=== PATIENT | female | born 1960 | race Caucasian/White ===

== ENCOUNTER 2021-01-24 14:12 | Inpatient (IN) | payer OTHER ==
[~2021-01-24] VITALS: Ht 160 cm; Wt 61.5 kg
[2021-01-24 15:18] LABS: BASOPHILS % (AUTO) 0 % (0-1); EOSINOPHILS % (AUTO) 1 % (1-7); LYMPHOCYTES % (AUTO) 11 % (22-44); MEAN CORPUSCULAR HEMOGLOBIN 34.1 pg (27.0-34.8); MEAN CORPUSCULAR HGB CONC 33.8 g/dL (32.4-35.8); MEAN PLATELET VOLUME 8.6 fL (7.4-10.4); MONOCYTES % (AUTO) 3 % (2-9); NEUTROPHILS % (AUTO) 85 % (42-75); PLATELET COUNT 303 x10^3/uL (130-400); RED BLOOD COUNT 3.89 x10^6/uL (3.82-5.3); RED CELL DISTRIBUTION WIDTH 13.5 % (9.6-15.2)
[2021-01-24 15:32] LABS: ALKALINE PHOSPHATASE 102 U/L (45-117); BILIRUBIN,TOTAL 0.3 mg/dL (0.2-1.0); TOTAL PROTEIN 8.3 g/dL (6.4-8.2); TROPONIN I < 0.015 ng/mL (0.000-0.045)
[2021-01-24 17:16] LABS: ALANINE AMINOTRANSFERASE 32 U/L (12-78); ALBUMIN 3.2 g/dL (3.4-5.0); ANION GAP 6 mmol/L (5-15); CALCIUM 8.8 mg/dL (8.5-10.1); CHLORIDE 100 mmol/L (98-107); CREATININE 0.68 mg/dL (0.55-1.02)
[2021-01-24] MEDS ORDERED: ACETAMINOPHEN 500 MG TABLET ONE (20:14)
[2021-01-24] MEDS ORDERED: SODIUM CHLORIDE 0.9% 1,000ML IVBOLUS ONE (20:30)
[2021-01-24] MEDS ORDERED: ACETAMINOPHEN 500 MG TABLET PO ONE (20:30)
[2021-01-24] MEDS ORDERED: SODIUM CHLORIDE FLUSH 10ML SYR IVF ONE (20:30)
[2021-01-24] MEDS ORDERED: ONDANSETRON 2MG/ML, 2ML IVPush ONE ×2 (20:30→21:30)
[2021-01-24] MEDS ORDERED: ONDANSETRON 2MG/ML, 2ML ONE ×2 (20:31→21:26)
--- NOTE | 2021-01-24 21:50 | NUR ---
pt having headache, and temperature has not gone down at all. pt tested on room air and is still 88 percent. erp was updated, pt given some motrin and to be admitted to floor
[2021-01-24] MEDS ORDERED: IBUPROFEN 800 MG TABLET ONE (21:57)
[2021-01-24] MEDS ORDERED: IBUPROFEN 800 MG TABLET PO ONE (22:00)
[2021-01-24] MEDS ORDERED: ATOR40TA PO (22:02)
[2021-01-24] MEDS ORDERED: MULT-508 PO (22:03)
[2021-01-24] MEDS ORDERED: PRAM3TAB PO ×2 (22:03→22:04)
[2021-01-24] MEDS ORDERED: DIPHENHYDRAMINE 25 MG CAPSULE ONE (23:03)
[2021-01-24] MEDS ORDERED: DIPHENHYDRAMINE 25 MG CAPSULE PO ONE (23:30)
[2021-01-25] MEDS ORDERED: ONDANSETRON 2MG/ML, 2ML IVPush PRN
--- NOTE | 2021-01-25 | NUR ---
PT TO CT AT THIS TIME
[2021-01-25] MEDS ORDERED: OMNIPAQUE 350 MG/ML, 75ML BOTTLE ONE (00:17)
[2021-01-25] MEDS ORDERED: DEXAMETHASONE 4 MG/ML, 1ML ONE ×2 (00:46→08:09)
[2021-01-25] MEDS: DEXAMETHASONE 4 MG/ML, 1ML IVPush SCH ×2 (00:48→08:50)
--- NOTE | 2021-01-25 01:43 | NUR ---
CALLED DR. TAYLOR TO UPDATE ON CT RESULTS. MESSAGE LEFT
--- NOTE | 2021-01-25 02:35 | NUR ---
RECEIVED REPORT FROM ERICKSON MAC. TRANSFER OF CARE.
[2021-01-25] MEDS ORDERED: ENOXAPARIN 40 MG/0.4 ML ONE (04:07)
--- NOTE | 2021-01-25 04:16 | NUR ---
Patient is resting comfortably in bed. Bed in lowest, rails engaged, call light on lap. Vital Signs within normal limits. WCTM. nadn. A&Ox4, breathing even and unlabored on 2l nc. no additional questions or needs at this time.
[2021-01-25] MEDS: ENOXAPARIN 30 MG/0.3 ML SQ SCH ×2 (04:43→15:19)
--- NOTE | 2021-01-25 04:51 | NUR ---
py urinated one unmeasured urine
--- NOTE | 2021-01-25 05:00 | NUR ---
late entry due to pt care. pt transferred to hospital bed and given blankets and pillow. pt tolerated tranbsfer well. nadn. pt A&OX4. breathing even and unlabored on 2l nc. attached to all monitors, vss. bed in low, rails engaged. call light on lap. no additional needs or questions at this time. wctm
[2021-01-25 05:20] LABS: BASOPHILS % (AUTO) 0 % (0-1); EOSINOPHILS % (AUTO) 0 % (1-7); LYMPHOCYTES % (AUTO) 7 % (22-44); MEAN CORPUSCULAR HEMOGLOBIN 34.6 pg (27.0-34.8); MEAN CORPUSCULAR HGB CONC 34.3 g/dL (32.4-35.8); MEAN PLATELET VOLUME 8.4 fL (7.4-10.4); MONOCYTES % (AUTO) 2 % (2-9); NEUTROPHILS % (AUTO) 90 % (42-75); PLATELET COUNT 278 x10^3/uL (130-400); RED BLOOD COUNT 3.61 x10^6/uL (3.82-5.3); RED CELL DISTRIBUTION WIDTH 13.9 % (9.6-15.2)
[2021-01-25 05:30] LABS: ANION GAP 4 mmol/L (5-15); CALCIUM 8.7 mg/dL (8.5-10.1); CHLORIDE 106 mmol/L (98-107); CREATININE 0.57 mg/dL (0.55-1.02)
[2021-01-25] MEDS ORDERED: PHARMACY INSTRUCTION MC PRN (08:00)
[2021-01-25] MEDS ORDERED: THIAMINE 100MG TABLET ONE (08:09)
[2021-01-25] MEDS ORDERED: CHOLECALCIFEROL 1,000 UNIT TABLET ONE (08:10)
[2021-01-25] MEDS ORDERED: ASCORBIC ACID 500 MG TABLET ONE (08:10)
[2021-01-25] MEDS ORDERED: ZINC SULFATE 220 MG CAPSULE ONE (08:10)
[2021-01-25] MEDS ORDERED: REMDESIVIR 200 MG in SODIUM CHLORIDE 0.9% 250 ML IVPB ONE (08:30)
[2021-01-25] MEDS: ZINC SULFATE 220 MG CAPSULE PO SCH (08:49)
[2021-01-25] MEDS: ASCORBIC ACID 500 MG TABLET PO SCH ×2 (08:50→18:58)
[2021-01-25] MEDS ORDERED: CHOLECALCIFEROL 1,000 UNIT TABLET PO SCH (09:00)
[2021-01-25] MEDS ORDERED: THIAMINE 100MG TABLET PO SCH (09:00)
[2021-01-25] MEDS ORDERED: ACETAMINOPHEN 325 MG TABLET ONE (09:02)
[2021-01-25] MEDS: ACETAMINOPHEN 325 MG TABLET PO PRN (09:05)
[2021-01-25] MEDS: CEFTRIAXONE 1,000 MG in DEXTROSE 5% 50 ML IVPB SCH (11:20)
[2021-01-25] MEDS ORDERED: FUROSEMIDE 20 MG/2 ML ONE (11:27)
[2021-01-25] MEDS ORDERED: POTASSIUM CHLORIDE 20 MEQ TAB.ER.PRT ONE (11:27)
[2021-01-25] MEDS: FUROSEMIDE 20 MG/2 ML IV SCH (11:40)
[2021-01-25] MEDS: POTASSIUM CHLORIDE 20 MEQ TAB.ER.PRT PO SCH (11:40)
[2021-01-25] MEDS ORDERED: KETOROLAC 30 MG/1 ML IVPush ONE (12:00)
[2021-01-25] MEDS ORDERED: KETOROLAC 30 MG/1 ML ONE (12:10)
[2021-01-25] MEDS: MULTIVITAMIN 1 TABLET PO SCH (13:42)
[2021-01-25 14:21] VITALS: BP 89/40
[2021-01-25] MEDS: AZITHROMYCIN 500 MG in SODIUM CHLORIDE 0.9% 250 ML IV SCH (15:20)
[2021-01-25] MEDS ORDERED: SUMATRIPTAN 100 MG TABLET PO ONE (15:30)
[2021-01-25 21:03] VITALS: BP 94/48
[2021-01-25] MEDS: ZOLPIDEM 5MG TABLET PO PRN (21:22)
[2021-01-25] MEDS: ATORVASTATIN 40 MG TABLET PO SCH (21:22)
[2021-01-26] MEDS: CEFTRIAXONE 1,000 MG in DEXTROSE 5% 50 ML IVPB SCH ×2 (00:45→15:14)
[2021-01-26] MEDS: ENOXAPARIN 30 MG/0.3 ML SQ SCH ×2 (01:18→14:40)
[2021-01-26 02:00] VITALS: BP 88/56
[2021-01-26 08:55] LABS: ALANINE AMINOTRANSFERASE 36 U/L (12-78); ALBUMIN 2.7 g/dL (3.4-5.0); ANION GAP 7 mmol/L (5-15); CALCIUM 8.8 mg/dL (8.5-10.1); CHLORIDE 106 mmol/L (98-107); CREATININE 0.62 mg/dL (0.55-1.02)
[2021-01-26 08:57] LABS: ALKALINE PHOSPHATASE 90 U/L (45-117); BILIRUBIN,TOTAL 0.2 mg/dL (0.2-1.0); TOTAL PROTEIN 7.4 g/dL (6.4-8.2)
[2021-01-26] MEDS ORDERED: SUMATRIPTAN 50 MG TABLET PO ONE (09:00)
[2021-01-26 09:07] VITALS: BP 124/43
[2021-01-26] MEDS: POTASSIUM CHLORIDE 20 MEQ TAB.ER.PRT PO SCH (09:09)
[2021-01-26] MEDS: MULTIVITAMIN 1 TABLET PO SCH (09:09)
[2021-01-26] MEDS: DEXAMETHASONE 4 MG/ML, 1ML IVPush SCH (09:09)
[2021-01-26] MEDS: FUROSEMIDE 20 MG/2 ML IV SCH (09:09)
[2021-01-26] MEDS: ZINC SULFATE 220 MG CAPSULE PO SCH (09:09)
[2021-01-26] MEDS: ASCORBIC ACID 500 MG TABLET PO SCH ×2 (09:10→16:29)
[2021-01-26] MEDS: THIAMINE 100MG TABLET PO SCH (09:10)
[2021-01-26] MEDS: CHOLECALCIFEROL 5,000u TAB PO SCH (10:10)
[2021-01-26] MEDS: REMDESIVIR 100 MG in SODIUM CHLORIDE 0.9% 250 ML IVPB SCH (12:45)
[2021-01-26] MEDS: ACETAMINOPHEN 325 MG TABLET PO PRN ×2 (14:41→20:37)
[2021-01-26] MEDS ORDERED: SUMATRIPTAN 50 MG TABLET PO PRN (15:00)
[2021-01-26] MEDS ORDERED: IBUPROFEN 200 MG TABLET ONE (15:11)
[2021-01-26] MEDS: IBUPROFEN 200 MG TABLET PO PRN (15:13)
[2021-01-26] MEDS: AZITHROMYCIN 500 MG in SODIUM CHLORIDE 0.9% 250 ML IV SCH (16:29)
[2021-01-26] MEDS ORDERED: POTASSIUM CHLORIDE 20 MEQ TAB.ER.PRT PO ONE (17:30)
[2021-01-26 20:00] VITALS: BP 94/46
[2021-01-26] MEDS: ATORVASTATIN 40 MG TABLET PO SCH (20:37)
[2021-01-26] MEDS: ZOLPIDEM 5MG TABLET PO PRN (20:38)
[2021-01-27 02:00] VITALS: BP 100/54
[2021-01-27] MEDS: ENOXAPARIN 30 MG/0.3 ML SQ SCH ×2 (02:56→15:27)
[2021-01-27] MEDS: CEFTRIAXONE 1,000 MG in DEXTROSE 5% 50 ML IVPB SCH ×2 (02:56→15:41)
[2021-01-27] MEDS: IBUPROFEN 200 MG TABLET PO PRN ×2 (05:07→15:26)
[2021-01-27 07:11] VITALS: BP 101/53
[2021-01-27] MEDS: DEXAMETHASONE 4 MG/ML, 1ML IVPush SCH (08:04)
[2021-01-27] MEDS: THIAMINE 100MG TABLET PO SCH (08:04)
[2021-01-27] MEDS: FUROSEMIDE 20 MG/2 ML IV SCH (08:04)
[2021-01-27] MEDS: CHOLECALCIFEROL 5,000u TAB PO SCH (08:04)
[2021-01-27] MEDS: POTASSIUM CHLORIDE 20 MEQ TAB.ER.PRT PO SCH (08:05)
[2021-01-27] MEDS: ZINC SULFATE 220 MG CAPSULE PO SCH (08:05)
[2021-01-27] MEDS: MULTIVITAMIN 1 TABLET PO SCH (08:05)
[2021-01-27] MEDS: ASCORBIC ACID 500 MG TABLET PO SCH ×2 (08:05→17:01)
[2021-01-27 10:19] LABS: ANION GAP 8 mmol/L (5-15); CALCIUM 8.8 mg/dL (8.5-10.1); CHLORIDE 105 mmol/L (98-107)
[2021-01-27 10:23] LABS: ALANINE AMINOTRANSFERASE 35 U/L (12-78); ALKALINE PHOSPHATASE 93 U/L (45-117); BILIRUBIN,TOTAL 0.2 mg/dL (0.2-1.0); CREATININE 0.67 mg/dL (0.55-1.02); TOTAL PROTEIN 7.5 g/dL (6.4-8.2)
[2021-01-27] MEDS: REMDESIVIR 100 MG in SODIUM CHLORIDE 0.9% 250 ML IVPB SCH (12:34)
[2021-01-27 13:18] VITALS: BP 105/56
[2021-01-27] MEDS ORDERED: CHOL500045 PO (13:55)
[2021-01-27] MEDS ORDERED: PRED20TA PO (13:55)
[2021-01-27] MEDS ORDERED: ZINC220C8 PO (13:55)
[2021-01-27] MEDS ORDERED: ASCO500T9 PO (13:55)
[2021-01-27] MEDS ORDERED: THIA100T67 PO (13:55)
[2021-01-27] MEDS ORDERED: LEVO750T6 PO (13:55)
[2021-01-27] MEDS: AZITHROMYCIN 500 MG in SODIUM CHLORIDE 0.9% 250 ML IV SCH (16:15)
== END 2021-01-27 19:00 | disposition home or self-care (01) | DRG 871 ==
LOC: ED 21:21 → EDIP 01-25 06:05 → ICU 01-25 12:03 → 3N 01-27 14:58
PROVIDERS: ADMIT Family Medicine; ATTEND Internal Medicine
PROC: XW033E5 Introduction of Remdesivir Anti-infective into Peripheral Vein, Percutaneous Approach, New Technology Group 5 (ICD-10-PCS; principal; 2021-01-25)
DX: A41.89 Other specified sepsis (principal); J96.01 Acute respiratory failure with hypoxia; J12.82 Pneumonia due to coronavirus disease 2019; U07.1 COVID-19; E87.1 Hypo-osmolality and hyponatremia; D75.89 Other specified diseases of blood and blood-forming organs; E78.5 Hyperlipidemia, unspecified; E87.6 Hypokalemia; E88.09 Other disorders of plasma-protein metabolism, not elsewhere classified; G89.29 Other chronic pain; F51.04 Psychophysiologic insomnia; Z82.3 Family history of stroke; Z86.711 Personal history of pulmonary embolism; Z90.710 Acquired absence of both cervix and uterus; Z90.49 Acquired absence of other specified parts of digestive tract
CPT/HCPCS: 36415; 71045; 71275; 80048; 80053; 82607; 83605; 83615; 83735; 84145; 84443; 84484; 85025; 85379; 85384; 86140; 87040; 93005; 93970; 96361; 96374; 96375; 96376; G0378; J0456; J0696; J1100; J1650; J1885; J2405; Q9967; J1940; J7030; J7050; Q0163